=== PATIENT | female | born 1995 | race Caucasian/White ===

== ENCOUNTER 2021-05-19 07:00 | Outpatient (CLI) | payer OTHER ==
[2021-05-19 21:43] LABS: RESPIRATORY SYNCYTIAL VIRUS Negative (Negative)
== END 2021-05-19 23:59 | disposition home or self-care (01) ==
LOC: LAB 07:00
PROVIDERS: ATTEND Nurse Practitioner
DX: R05 Cough (principal); Z20.822 Contact with and (suspected) exposure to COVID-19
CPT/HCPCS: 87280

== ENCOUNTER 2021-12-10 08:41 | Outpatient (CLI) | payer OTHER ==
--- NOTE | 2021-12-10 13:06 | XRAY Report ---
PROCEDURE: Ankle 3 View RT INDICATIONS: SPRAIN OF LIGAMENT OF R ANKLE TECHNIQUE: 3 views of the ankle were acquired. COMPARISON: None FINDINGS: Bones: No fractures or dislocations. Ankle mortise is normally aligned. No suspicious bony lesions . Small plantar calcaneal bone spur. Soft tissues: No tibiotalar joint effusion. Achilles tendon appears normal. IMPRESSION: No fracture. No osseous lesion. If there are persistent symptoms or continued clinical c oncern for pathology, then repeat plain film radiographs (7-10 days) or advanced imaging (CT, MR, bon e scan) should be considered for further evaluation. Reviewed by: Brittani Gottlieb MD, PhD on 12/10/2021 1:05 PM PDT Approved by: Brittani Gottlieb MD, PhD on 12/10/2021 1:05 PM PDT Station ID: [id number]
== END 2021-12-10 23:59 | disposition home or self-care (01) ==
LOC: DI.N 08:41
PROVIDERS: ATTEND Family Medicine
DX: S93.491A Sprain of other ligament of right ankle, initial encounter (principal)

== ENCOUNTER 2022-10-05 17:24 | Emergency (ER) | payer OTHER ==
[2022-10-05] MEDS ORDERED: SODIUM CHLORIDE 0.9% 1,000 ML IV STA (17:51)
--- NOTE | 2022-10-05 18:02 | ED Physician Documentation ---
History of Present Illness - Stated complaint Stated Complaint: FEVER/DIZZY/HEAD PX - Chief complaint Chief Complaint: Fever - Additonal information Additional information: History obtained from patient. Mekhi historian. 26-year-old female presents to the emergency department for evaluation of feeling generally unwell, lightheaded, dizzy nauseated and with acute fever up to 103.7 this afternoon. She also has a mild headache. Patient states that she woke up this morning feeling off but not bad enough that she could not go to work. However at work her symptoms markedly worsen she develops a fever. She went home early and as the afternoon is gone on she is continue to feel poor. On presentation in the room and greeted with a young adult woman who is crying and tearful just stating that she does not feel good. She states she has a history of migraines and this headache feels similar to other migraines. 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 She has also had her gallbladder removed. She does take 200 mics of levothyroxine daily. Reports normal TSH testing recently. Review of Systems Constitutional: reports: Fever, Myalgias Eyes: reports: Reviewed and negative Throat: reports: Reviewed and negative Respiratory: reports: Cough. denies: Dyspnea, Hemoptysis GI: reports: Reviewed and negative : reports: Reviewed and negative Skin: denies: Rash, Lesions Musculoskeletal: reports: Reviewed and negative Neurologic: reports: Reviewed and negative PD PAST MEDICAL HISTORY - Present Medications Home Medications: Ambulatory Orders Medication Instructions Recorded Confirmed Levothyroxine Sodium 200 mcg PO DAILY 10/05/22 10/05/22 [Levothyroxine] - Allergies Allergies/Adverse Reactions: Allergies Allergy/AdvReac Type Severity Reaction Status Date / Time No Known Drug Allergies Allergy Verified 10/05/22 17:44 PD ED PE NORMAL - General General: Alert and oriented X 3, Well developed/nourished (Obese) - HEENT HEENT: Atraumatic, Ears normal, Moist mucous membranes, Pharynx benign - Neck Neck: Supple, no meningeal sign, No adenopathy, Other (No meningeal signs.) - Cardiac Cardiac: RRR (Tachycardic sinus), No murmur - Respiratory Respiratory: No respiratory distress, Clear bilaterally - Abdomen Abdomen: Normal bowel sounds, Soft, Non tender (No tenderness elicited with light or deep palpation or percussion) - Back Back: No CVA TTP - Derm Derm: Normal color, Warm and dry - Extremities Extremities: No deformity, No tenderness to palpate, Normal ROM s pain - Neuro Neuro: Alert and oriented X 3, 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 No: Prolonged QT QRS: Normal Compare to prior EKG: Old EKG unavailable Computer interpretation: Agree with computer - Labs Labs: Laboratory Tests 10/05/22 10/05/22 10/05/22 18:06 18:06 18:06 WBC 11.0 H RBC 4.69 Hgb 14.6 Hct 44.1 MCV 94.0 MCH 31.1 H MCHC 33.1 RDW 12.8 Plt Count 241 MPV 12.8 H Neut # (Auto) 7.3 H Lymph # (Auto) 2.7 Whitley # (Auto) 0.8 Eos # (Auto) 0.2 Baso # (Auto) 0.1 Absolute Nucleated RBC 0.00 Nucleated RBC % 0.0 Sodium 137 Potassium 4.0 Chloride 100 L Carbon Dioxide 21 Anion Gap 16.0 H BUN 12 Creatinine 0.9 Estimated GFR (MDRD) 75 L Glucose 105 H Calcium 10.4 H Total Bilirubin 0.7 AST 26 ALT 45 Alkaline Phosphatase 52 Total Protein 8.1 Albumin 4.3 Globulin 3.8 Albumin/Globulin Ratio 1.1 Lipase 32 TSH 0.26 L Free T4 1.27 Urine Color Urine Clarity Urine pH Ur Specific [place] Urine Protein Urine Glucose (UA) Urine Ketones Urine Occult Blood Urine Nitrite Urine Bilirubin Urine Urobilinogen Ur Leukocyte Esterase Ur Microscopic Review Urine Culture Comments Urine HCG, Qual Nasal Adenovirus (PCR) Nasal B. parapertussis DNA (PCR) Nasal Coronavir 229E PCR Nasal Coronavir HKU1 PCR Nasal Coronavir NL63 PCR Nasal Coronavir OC43 PCR Nasal Enterovir/Rhinovir PCR Nasal Influenza B PCR Nasal Influenza A PCR Nasal Parainfluen 1 PCR Nasal Parainfluen 2 PCR Nasal Parainfluen 3 PCR Nasal Parainfluen 4 PCR Nasal RSV (PCR) Nasal B.pertussis DNA PCR Nasal C.pneumoniae (PCR) Pete Human Metapneumo PCR Nasal M.pneumoniae (PCR) Nasal SARS-CoV-2 (PCR) 10/05/22 10/05/22 18:06 18:19 WBC RBC Hgb Hct MCV MCH MCHC RDW Plt Count MPV Neut # (Auto) Lymph # (Auto) Whitley # (Auto) Eos # (Auto) Baso # (Auto) Absolute Nucleated RBC Nucleated RBC % Sodium Potassium Chloride Carbon Dioxide Anion Gap BUN Creatinine Estimated GFR (MDRD) Glucose Calcium Total Bilirubin AST ALT Alkaline Phosphatase Total Protein Albumin Globulin Albumin/Globulin Ratio Lipase TSH Free T4 Urine Color YELLOW Urine Clarity CLEAR Urine pH 7.0 Ur Specific [place] 1.020 Urine Protein NEGATIVE Urine Glucose (UA) NEGATIVE Urine Ketones NEGATIVE Urine Occult Blood NEGATIVE Urine Nitrite NEGATIVE Urine Bilirubin NEGATIVE Urine Urobilinogen 0.2 (NORMAL) Ur Leukocyte Esterase NEGATIVE Ur Microscopic Review NOT INDICATED Urine Culture Comments NOT INDICATED Urine HCG, Qual NEGATIVE Nasal Adenovirus (PCR) NOT DETECTED Nasal B. parapertussis DNA (PCR) NOT DETECTED Nasal Coronavir 229E PCR NOT DETECTED Nasal Coronavir HKU1 PCR NOT DETECTED Nasal Coronavir NL63 PCR NOT DETECTED Nasal Coronavir OC43 PCR NOT DETECTED Nasal Enterovir/Rhinovir PCR NOT DETECTED Nasal Influenza B PCR NOT DETECTED Nasal Influenza A PCR NOT DETECTED Nasal Parainfluen 1 PCR NOT DETECTED Nasal Parainfluen 2 PCR NOT DETECTED Nasal Parainfluen 3 PCR NOT DETECTED Nasal Parainfluen 4 PCR NOT DETECTED Nasal RSV (PCR) NOT DETECTED Nasal B.pertussis DNA PCR NOT DETECTED Nasal C.pneumoniae (PCR) NOT DETECTED Pete Human Metapneumo PCR NOT DETECTED Nasal M.pneumoniae (PCR) NOT DETECTED Nasal SARS-CoV-2 (PCR) NOT DETECTED - Rads (name of study) cxr Radiology: Final report received (No acute cardiopulmonary process) PD Medical Decision Making - ED course Complexity details: reviewed results, re-evaluated patient, considered differential, d/w patient, d/w family ED course: 26-year-old female presents emergency department for evaluation of fevers generalized malaise and dizziness. Symptoms began this morning. 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 She is currently taking levothyroxine 200 mics daily. On presentation to the emergency department patient was complaining of a headache crying and states she is having a panic attack. Initially she was quite tachycardic with a heart rate in the 140s. Her EKG showed a sinus tachycardia without any ischemic changes or findings to suggest electrolyte conduction abnormality such as atrial fibrillation or a flutter. In the emergency department we did administer a liter of crystalloid as well as some Compazine and Benadryl to help with the headache which successfully improved her pain as well as reduced her heart rate. Given the reported fever urinalysis was completed and shows no findings of infection. Chest x-ray did not show any findings of pneumonia. Viral respiratory panel Was unremarkable. We also obtained a CBC and electrolytes which per my interpretation showed no acute worrisome findings. Given the tachycardia and the history of an absent thyroid a TSH and a corrected T4 were completed. TSH is low as 1 would expect with a corrected T4 is normal indicating appropriate treatment with the levothyroxine. At this time the cause of your acute febrile illness is not clear. I do however suspect viral illness despite the lack of finding on the PCR panel. She is not meningeal and nonfocal. No evidence of pneumonia on chest x-ray. Urine shows no signs of infection. Her blood work was otherwise unremarkable. She is feeling better after a liter of IV fluids as well as the Compazine and Benadryl. This headache that she has is typical to her previous migraines and as such imaging was deferred today. She is discharged home in stable condition. With the usual emergent return precautions discussed Departure - Departure Disposition: 01 Home, Self Care Clinical Impression: Febrile illness, acute Headache Qualifiers: Headache type: unspecified Headache chronicity pattern: acute headache Intractability: not intractable Qualified Code(s): R51.9 - Headache, unspecified Condition: Stable Record reviewed to determine appropriate education?: Yes Comments: You came to the emergency department today because this morning you woke up feeling not well you have had a headache through the day as well as development of a fever, dizziness. Here in the emergency department your CBC and electrolytes are all essentially normal. Though your TSH level is low your corrected T4 is normal meaning that the levothyroxine dose you are on is working appropriately. Your urine showed no signs of infection. Your chest x-ray is normal and did not show any findings of pneumonia. Your viral panel today is negative. When you presented to the emergency department you had a headache and had a very elevated heart rate. We did give you some IV fluids which successfully reduced your heart rate. We also gave you some Compazine and Benadryl IV to help with the headache which seems to be working. It is not clear to us at this time what the cause of the febrile illnesses though I do suspect is likely a virus despite negative testing. I expect that over the next few days you will have a mild headache and chills but I expect that this will get better. You should stay well-hydrated and get plenty of rest. Do not hesitate to return to the emergency department if you find that your symptoms are worsening.
[2022-10-05 18:18] LABS: BASOPHILS # (AUTO) 0.1 10^3/uL (0.0-0.1); BASOPHILS % (AUTO) 0.5 %; EOSINOPHILS # (AUTO) 0.2 10^3/uL (0.0-0.7); EOSINOPHILS % (AUTO) 1.6 %; HCT - HEMATOCRIT 44.1 % (37.0-47.0); HGB - HEMOGLOBIN 14.6 g/dL (12.0-16.0); LYMPHOCYTES # (AUTO) 2.7 10^3/uL (1.5-3.5); LYMPHOCYTES % (AUTO) 24.4 %; MEAN CORPUSCULAR HEMOGLOBIN 31.1 pg (27.0-31.0); MEAN CORPUSCULAR HGB CONC 33.1 g/dL (32.0-36.0); MEAN PLATELET VOLUME 12.8 fL (7.9-10.8); MONOCYTES # (AUTO) 0.8 10^3/uL (0.0-1.0); MONOCYTES % (AUTO) 6.8 %; NEUTROPHILS # (AUTO) 7.3 10^3/uL (1.5-6.6); NEUTROPHILS % (AUTO) 66.3 %; PLT - PLATELET COUNT 241 10^3/uL (130-450); RED BLOOD COUNT 4.69 10^6/uL (4.20-5.40); RED CELL DISTRIBUTION WIDTH 12.8 % (12.0-15.0)
[2022-10-05 18:22] LABS: BILIRUBIN,URINE NEGATIVE (NEGATIVE); GLUCOSE, URINE (UA) NEGATIVE (NEGATIVE); KETONES,URINE (UA) NEGATIVE (NEGATIVE); LEUKOCYTE ESTERASE, URINE NEGATIVE (NEGATIVE); NITRITE,URINE NEGATIVE (NEGATIVE); OCCULT BLOOD,URINE NEGATIVE (NEGATIVE); PROTEIN,URINE NEGATIVE (NEGATIVE); UROBILINOGEN,URINE 0.2 (NORMAL) E.U./dL (NORMAL)
[2022-10-05 18:26] LABS: CLARITY,URINE CLEAR (CLEAR); HCG UR QUAL NEGATIVE
[2022-10-05 18:31] LABS: ALBUMIN 4.3 g/dL (3.2-5.5); ALBUMIN/GLOBULIN RATIO 1.1 (1.0-2.2); BILIRUBIN,TOTAL 0.7 mg/dL (0.2-1.0); CALCIUM 10.4 mg/dL (8.5-10.3); CREATININE 0.9 mg/dL (0.4-1.0); TOTAL PROTEIN 8.1 g/dL (6.7-8.2)
--- OUTSIDE RECORDS SUMMARY | 2022-10-05 18:40 | EXTERNAL MEDICAL SUMMARY RPT | Continuity of Care Document ---
:1995 Author Organization [facility] Address [address] [place] [address] Phone Care Team Providers Name Role Phone Unavailable Unavailable Unavailable Margaret Chahal Ma Unavailable Unavailable Margaret Chahal Ma Unavailable Unavailable Allergies No information. Encounters No information. Functional Status No information. Immunizations No information. Medications date description facility 2022-07-14 00:00 doxycycline hyclate All 2022-07-14 00:00 doxycycline hyclate All 2022-07-14 00:00 doxycycline hyclate All 2022-07-14 00:00 doxycycline hyclate All 2022-07-14 00:00 levothyroxine All 2022-07-15 00:00 levothyroxine All 2022-07-14 00:00 doxycycline hyclate All 2022-07-14 00:00 doxycycline hyclate All 2022-07-14 00:00 levothyroxine All 2022-07-15 00:00 levothyroxine All 2022-07-14 00:00 benzonatate All 2022-07-14 00:00 benzonatate All 2022-07-14 00:00 benzonatate All 2022-07-14 00:00 benzonatate All 2022-07-14 00:00 levothyroxine All 2022-07-15 00:00 levothyroxine All 2022-07-14 00:00 levothyroxine All 2022-07-15 00:00 levothyroxine All 2022-07-14 00:00 DEXAMETHASONE SODIUM PHOSPHATE All 2022-07-14 00:00 DEXAMETHASONE SODIUM PHOSPHATE All 2022-07-14 00:00 benzonatate All 2022-07-14 00:00 benzonatate All 2022-07-14 00:00 levothyroxine All 2022-07-15 00:00 levothyroxine All 2022-07-14 00:00 levothyroxine All 2022-07-15 00:00 levothyroxine All 2022-07-14 00:00 benzonatate All 2022-07-14 00:00 benzonatate All 2022-07-14 00:00 doxycycline hyclate All 2022-07-14 00:00 doxycycline hyclate All 2022-07-14 00:00 levothyroxine All 2022-07-15 00:00 levothyroxine All 2022-07-14 00:00 levothyroxine All 2022-07-15 00:00 levothyroxine All Problems date description facility 2022-07-14 00:00 Bronchitis All 2022-07-14 00:00 Bronchitis All 2022-07-14 00:00 Bronchitis, not specified as acute or c hronic All 2022-07-14 00:00 Bronchitis, not specified as acute or c hronic All Procedures date description facility 2022-07-14 00:00 Visit Code Hold All 2022-07-14 00:00 Visit Code Hold All 2022-07-14 00:00 COVID, FLU A+B Antigen (In Clinic Free Test) All 2022-07-14 00:00 COVID, FLU A+B Antigen (In Clinic Free Test) All 2022-07-14 00:00 Dexamethasone Sodium Phosphate Inj 10mg /1mL All 2022-07-14 00:00 Dexamethasone Sodium Phosphate Inj 10mg /1mL All 2022-07-14 00:00 Med Administration (PO-SL-IN-AL) All 2022-07-14 00:00 Med Administration (PO-SL-IN-AL) All Results/Labs No information. Social History No information. Vital Signs date measurement value units 2022-07-14 00:00 BMI 48.92 kg/m2 2022-07-14 00:00 BP_diastolic 92 mmHg 2022-07-14 00:00 BP_systolic 142 mmHg 2022-07-14 00:00 heart_rate 100 /min 2022-07-14 00:00 height_metric 167.64 cm 2022-07-14 00:00 height_standard 66 in 2022-07-14 00:00 respiration_rate 22 /min 2022-07-14 00:00 temperature_metric 36.83 C 2022-07-14 00:00 temperature_standard 98.3 F 2022-07-14 00:00 weight_metric 136.98 kg 2022-07-14 00:00 weight_standard 302 lb
--- NOTE | 2022-10-05 18:43 | XRAY Report ---
PROCEDURE: Chest 1 View X-Ray INDICATIONS: cough, fever TECHNIQUE: One view of the chest was acquired. COMPARISON: None. FINDINGS: Surgical changes and devices: None. Lungs and pleura: No pleural effusions or pneumothorax. Lungs are clear. Mediastinum: Mediastinal contours appear normal. Heart size is normal. Bones and chest wall: No suspicious bony lesions. Overlying soft tissues appear unremarkable. IMPRESSION: Unremarkable portable chest, without infiltrates. Reviewed by: Matthew Knight MD on 10/05/2022 5:41 PM [facility] Approved by: Matthew Knight MD on 10/05/2022 5:41 PM [facility] Station ID: [id number]
[2022-10-05 18:46] LABS: THYROID STIMULATING HORMONE 0.26 uIU/mL (0.34-5.60)
[2022-10-05 18:48] LABS: FREE T4 (FREE THYROXINE) 1.27 ng/dL (0.58-1.64)
[2022-10-05] MEDS ORDERED: diphenhydrAMINE INJ 50 MG/ML VIAL IVP STA (19:03)
[2022-10-05] MEDS ORDERED: PROCHLORPERAZINE 10 MG/2 ML VIAL IVP STA (19:03)
[2022-10-05 19:12] LABS: B. PARAPERTUSSIS- RESP PCR PAN NOT DETECTED; B. PERTUSSIS- RESP PCR PANEL NOT DETECTED; C. PNEUMONIAE- RESP PCR PANEL NOT DETECTED; CORONAVIRUS 229E-RESP PCR NOT DETECTED; CORONAVIRUS HKU1-RESP PCR NOT DETECTED; CORONAVIRUS NL63-RESP PCR NOT DETECTED; CORONAVIRUS OC43-RESP PCR NOT DETECTED; HUMAN METAPNEUMOVIRUS NOT DETECTED; INFLUENZA A- RESP PCR PANEL NOT DETECTED; INFLUENZA B - RESP PCR PANEL NOT DETECTED; M. PNEUMONIAE- RESP PCR PANEL NOT DETECTED; PARAINFLUENZA VIRUS 1 NOT DETECTED; PARAINFLUENZA VIRUS 2 NOT DETECTED; PARAINFLUENZA VIRUS 3 NOT DETECTED; PARAINFLUENZA VIRUS 4 NOT DETECTED; RHINOVIRUS/ENTEROVIRUS NOT DETECTED; RSV- RESP PCR PANEL NOT DETECTED; SARS-CoV-2 -RESP PCR PANEL NOT DETECTED
[2022-10-05 20:02] VITALS: BP 134/81
== END 2022-10-05 20:01 | disposition home or self-care (01) ==
LOC: ED 17:24
DX: R69 Illness, unspecified (principal); R50.9 Fever, unspecified; R51.9 Headache, unspecified; R00.0 Tachycardia, unspecified; E89.0 Postprocedural hypothyroidism; Z20.822 Contact with and (suspected) exposure to COVID-19; F41.0 Panic disorder [episodic paroxysmal anxiety]
CPT/HCPCS: 36415; 71045; 80053; 81003; 81025; 83690; 84439; 84443; 85025; 87633; 93005; 96374; 99284; J1200; 81001; 87086